=== PATIENT | female | born 1990 | race American Indian/Alaskan Native ===

== ENCOUNTER 2019-04-07 23:53 | Emergency (ER) | payer SELFPAY ==
[2019-04-08 00:46] VITALS: BP 117/68
[2019-04-08] MEDS ORDERED: CLINDAMYCIN 300 MG CAP PO ONE (01:19)
[2019-04-08] MEDS ORDERED: HYDROcodone/ACETAMINOPHEN 10-325MG TAB PO ONE (01:19)
--- NOTE | 2019-04-08 01:27 | Emergency Department Report ---
ED ENT HPI - General Chief complaint: Dental/Oral Stated complaint: LT EAR AND JAW PAIN Time Seen by Provider: 04/08/19 01:18 Source: patient Mode of arrival: Ambulatory Limitations: No Limitations - History of Present Illness Initial comments: This is a 29-year-old female nontoxic, well nourished in appearance, no acute signs of distress presents to the ED with c/o of left lower toothache x1 week. Patient denies following up with a dentist. Patient stated has some swelling to left mandible area as well. Patient describes toothache as aching level of 8 out of 10. Denies any pus or drainage. Patient denies any numbness, tingling, fever, chills, headache, stiff neck, abdominal pain, chest pain, shortness of breath. Patient denies any drug allergies. MD complaint: tooth pain -: week(s) (1) Location: tooth # 1 - pain here Severity: mild Severity scale (0 -10): 8 Quality: aching Consistency: constant Improves with: none Worsens with: none Context- Dental: history of dental caries, poor dental care Associated Symptoms: gum swelling, toothache. denies: fever, cough, pain with swallowing, sore throat, tinnitus, hearing loss, discharge from ear, rhinorrhea - Related Data Previous Rx's Medication Instructions Recorded Last Taken Type Acetaminophen/Codeine [Tylenol 1 tab PO Q6H PRN #12 tab 04/08/19 Unknown Rx /Codeine # 3 tab] Chlorhexidine Mouthwash [Peridex] 15 ml MM BID #1 bottle 04/08/19 Unknown Rx Clindamycin [Clindamycin CAP] 300 mg PO Q6H #28 capsule 04/08/19 Unknown Rx Allergies Allergy/AdvReac Type Severity Reaction Status Date / Time No Known Allergies Allergy Unverified 04/08/19 01:02 ED Dental HPI - General Chief complaint: Dental/Oral Stated complaint: LT EAR AND JAW PAIN Time Seen by Provider: 04/08/19 01:18 Source: patient Mode of arrival: Ambulatory Limitations: No Limitations - Related Data Previous Rx's Medication Instructions Recorded Last Taken Type Acetaminophen/Codeine [Tylenol 1 tab PO Q6H PRN #12 tab 04/08/19 Unknown Rx /Codeine # 3 tab] Chlorhexidine Mouthwash [Peridex] 15 ml MM BID #1 bottle 04/08/19 Unknown Rx Clindamycin [Clindamycin CAP] 300 mg PO Q6H #28 capsule 04/08/19 Unknown Rx Allergies Allergy/AdvReac Type Severity Reaction Status Date / Time No Known Allergies Allergy Unverified 04/08/19 01:02 ED Review of Systems ROS: Stated complaint: LT EAR AND JAW PAIN Other details as noted in HPI Constitutional: denies: chills, fever Eyes: denies: eye pain, eye discharge, vision change ENT: dental pain. denies: ear pain, throat pain Respiratory: denies: cough, shortness of breath, wheezing Cardiovascular: denies: chest pain, palpitations Endocrine: no symptoms reported Gastrointestinal: denies: abdominal pain, nausea, diarrhea Genitourinary: denies: urgency, dysuria, discharge Musculoskeletal: denies: back pain, joint swelling, arthralgia Skin: denies: rash, lesions Neurological: denies: headache, weakness, paresthesias Psychiatric: denies: anxiety, depression Hematological/Lymphatic: denies: easy bleeding, easy bruising ED Past Medical Hx - Past Medical History Previous Medical History?: No - Surgical History Past Surgical History?: No - Social History Smoking Status: Current Every Day Smoker Substance Use Type: None - Medications Home Medications: Home Medications Medication Instructions Recorded Confirmed Last Taken Type Acetaminophen/Codeine [Tylenol 1 tab PO Q6H PRN #12 tab 04/08/19 Unknown Rx /Codeine # 3 tab] Chlorhexidine Mouthwash [Peridex] 15 ml MM BID #1 bottle 04/08/19 Unknown Rx Clindamycin [Clindamycin CAP] 300 mg PO Q6H #28 capsule 04/08/19 Unknown Rx ED Physical Exam - General Limitations: No Limitations General appearance: alert, in no apparent distress - Head Head exam: Present: atraumatic, normocephalic - Expanded ENT Exam Expanded Ear exam: Present: normal external inspection Mouth exam: Present: normal external inspection. Absent: drooling, trismus, muffled voice Teeth exam: Present: dental caries, fractured tooth #, dental tenderness #, gingival enlargement, other (some swelling to left mandible area with no induration or flutance noted. no abscess. ) - Neck Neck exam: Present: normal inspection, full ROM. Absent: tenderness, meningismus, lymphadenopathy - Extremities Exam Extremities exam: Present: full ROM - Back Exam Back exam: Present: full ROM - Neurological Exam Neurological exam: Present: alert, oriented X3, normal gait - Psychiatric Psychiatric exam: Present: normal affect, normal mood - Skin Skin exam: Present: warm, dry, intact, normal color. Absent: rash ED Course Vital Signs 04/08/19 04/08/19 00:33 00:56 Temperature 99.0 F 99 F Pulse Rate 70 86 Respiratory 18 18 Rate Blood Pressure 117/68 117/68 O2 Sat by Pulse 100 100 Oximetry - Reevaluation(s) Reevaluation #1: 04/08/19 01:26 Patient is speaking in full sentences with no signs of distress noted. ED Medical Decision Making - Medical Decision Making This is a 29-year-old female that presents with gingivitis and dental caries. P atient is stable and was examined by me. There is slight swelling to the left lower mandible with no induration or flutance on exam. I did give patient clindamycin 600 mg PO in the ED and patient is discharged with clindamycin. He had strict instructions to follow-up with oral maxillary surgeon in 24 hours or if symptoms would worsen to return to emergency room as was possible. Patient is discharged with Tylenol #3, Peridex and Clinda. Patient was instructed not to operate any machinery when taking Ultram due to drowsiness. At time of discharge, the patient does not seem toxic or ill in appearance. No acute signs of distress noted. Patient agrees to discharge treatment plan of care. No further questions noted by the patient. Critical care attestation.: If time is entered above; I have spent that time in minutes in the direct care of this critically ill patient, excluding procedure time. ED Disposition Clinical Impression: Dental caries, Gingivitis Disposition: TO HOME OR SELFCARE Is pt being admited?: No Does the pt Need Aspirin: No Condition: Stable Instructions: Dental Caries (ED), Gingivitis (ED), Acetaminophen/Codeine (By mouth) Additional Instructions: Follow-up with a oral maxillary surgery by tomorrow or if symptoms worsen and continue return to emergency room as soon as possible. [facility] [employer] Address: [address], [place] [address] Hours: Sunday Closed Sunday 8AM-1PM, 2-5PM Sunday 8AM-1PM, 2-5PM Sunday 8AM-1PM, 2-5PM 8AM-1PM, 2-5PM Sunday 7AM-2PM Sunday Closed Do not operate any machinery while taking Tylenol with codeine as this may cause drowsiness. Prescriptions: Clindamycin [Clindamycin CAP] 300 mg PO Q6H #28 capsule Chlorhexidine Mouthwash [Peridex] 15 ml MM BID #1 bottle Acetaminophen/Codeine [Tylenol /Codeine # 3 tab] 1 tab PO Q6H PRN #12 tab PRN Reason: Pain , Severe (7-10) Referrals: PRIMARY CARE, [Referring] - 3-5 Days JS PHILLIPS MD [Staff Physician] - 3-5 Days [facility] [Outside] - 3-5 Days Forms: Work/School Release Form(ED)
== END 2019-04-08 02:05 | disposition home or self-care (01) ==
LOC: ED 23:53
DX: K02.9 Dental caries, unspecified (principal); K05.10 Chronic gingivitis, plaque induced; F17.200 Nicotine dependence, unspecified, uncomplicated; Z79.899 Other long term (current) drug therapy